=== PATIENT | female | born 1990 | race Caucasian/White ===

== ENCOUNTER 2016-10-08 16:33 | Emergency (ER) | payer SELFPAY ==
[~2016-10-08] VITALS: Ht 170.2 cm; Wt 72.7 kg
[~2016-10-08 16:33] MED LIST: ACETAMINOPHEN W1 TA6 PO; AMOXICILLIN 8751 TAB PO; BUSPAR5 MG; CELEXA10 MG; CEPHALEXIN500 M1 PO; CIPRO 500MG TA500 MG PO; IBU600 MG PO; LORTAB 5/500 501 TAB PO; NAPROSYN PO; NO HOME MEDICATIONS; NORCO 325 MG-51 TAB PO; PERCOCET 325 MG1 TA2 PO; PHENERGAN 25 TA25 MG PO; PRENATAL1 TA7 PO; PROVENTIL0.09 MG/A1 IH; TUSS PO
[2016-10-08 16:34] VITALS: BP 151/88; PULSE 99; TEMP 98.7
[2016-10-08] MEDS ORDERED: SPRINTEC 35 MCG1 TAB PO (16:39)
[2016-10-08] MEDS ORDERED: XANAX2 MG PO (16:39)
[2016-10-08] MEDS ORDERED: ADDERALL10 MG PO (16:39)
[2016-10-08 17:11] LABS: BASO # 0.1 (0.0-0.2); BASO % 0.9 % (0.0-2.0); EOS # 0.2 (0.0-0.7); EOS % 2.2 % (0-4.0); GRAN # 6.4 (1.4-6.5); GRAN % 62.2 % (42.2-75.2); HEMATOCRIT 38.7 % (37.0-47.0); HEMOGLOBIN 12.9 g/dl (12.5-16.0); LYMPH % 29.4 % (20.0-51.0); MEAN CELL VOLUME 95 fl (80.0-100.0); MEAN CORPUSCULAR HEMOGLOBIN 32 pg (27.0-31.0); MEAN CORPUSCULAR HGB CONC 33 g/dl (33.0-37.0); MEAN PLATELET VOLUME 10.8 fl (7.4-10.4); MONO # 0.5 (0.1-0.6); MONO % 5.1 % (1.7-9.3); PLATELET COUNT 231 K/mm3 (130-400); RED BLOOD COUNT 4.07 M/mm3 (4.10-5.30); REDCELL DISTRIBUTION WIDTH-CV 13.1 % (11.5-14.5); WHITE BLOOD COUNT 10.3 K/mm3 (4.8-10.8)
[2016-10-08 17:24] LABS: PH 7 (5-8); URINE APPEARANCE Clear; URINE BACTERIA Rare /hpf; URINE BILIRUBIN Negative (NEGATIVE); URINE BLOOD 1+ (NEGATIVE); URINE COLOR Yellow; URINE GLUCOSE Negative (NEGATIVE); URINE KETONE Negative (NEGATIVE); URINE UROBILINOGEN Negative (NEGATIVE)
[2016-10-08] MEDS ORDERED: AMOXICILLIN 50500 MG PO (17:27)
== END 2016-10-08 17:32 | disposition home or self-care (01) ==
LOC: COL.ER 16:33
PROVIDERS: Physician Assistant
DX: K08.89 Other specified disorders of teeth and supporting structures (principal); R23.3 Spontaneous ecchymoses; F90.9 Attention-deficit hyperactivity disorder, unspecified type; F41.9 Anxiety disorder, unspecified; F32.9 Major depressive disorder, single episode, unspecified

== ENCOUNTER 2016-11-09 15:32 | Emergency (ER) | payer SELFPAY ==
[~2016-11-09] VITALS: Ht 170.2 cm; Wt 67.0 kg
[~2016-11-09 15:32] MED LIST changes: +ADDERALL10 MG PO; +AMOXICILLIN 50500 MG PO; +SPRINTEC 35 MCG1 TAB PO; +XANAX2 MG PO
[2016-11-09 15:41] VITALS: BP 147/84; TEMP 98.1
[2016-11-09 18:30] VITALS: PULSE 51
== END 2016-11-09 18:35 | disposition home or self-care (01) ==
LOC: COL.ER 15:32
DX: S16.1XXA Strain of muscle, fascia and tendon at neck level, initial encounter (principal); S50.11XA Contusion of right forearm, initial encounter; W10.8XXA Fall (on) (from) other stairs and steps, initial encounter; Y92.008 Other place in unspecified non-institutional (private) residence as the place of occurrence of the external cause; F32.9 Major depressive disorder, single episode, unspecified; F41.9 Anxiety disorder, unspecified; F90.9 Attention-deficit hyperactivity disorder, unspecified type; R40.2412 Glasgow coma scale score 13-15, at arrival to emergency department

== ENCOUNTER 2017-04-09 17:17 | Emergency (ER) | payer SELFPAY ==
[~2017-04-09] VITALS: Ht 167.6 cm; Wt 68.2 kg
[2017-04-09 17:35] VITALS: BP 180/90; PULSE 97; TEMP 98.6
[2017-04-09] MEDS ORDERED: XANAX 1MG1 MG PO (18:30)
== END 2017-04-09 18:40 | disposition home or self-care (01) ==
LOC: COL.ER 17:17
DX: F19.239 Other psychoactive substance dependence with withdrawal, unspecified (principal); F41.9 Anxiety disorder, unspecified; F17.210 Nicotine dependence, cigarettes, uncomplicated

== ENCOUNTER 2017-07-06 21:55 | Emergency (ER) | payer SELFPAY ==
[~2017-07-06 21:55] MED LIST changes: +XANAX 1MG1 MG PO
[2017-07-06 21:57] VITALS: BP 165/89; TEMP 99.7
[2017-07-06 22:28] LABS: BASO # 0.1 (0.0-0.2); BASO % 0.8 % (0.0-2.0); EOS # 0.3 (0.0-0.7); EOS % 2.1 % (0-4.0); GRAN # 8.5 (1.4-6.5); GRAN % 62.1 % (42.2-75.2); HEMATOCRIT 40.8 % (37.0-47.0); HEMOGLOBIN 14.2 g/dl (12.5-16.0); MEAN CELL VOLUME 91 fl (80.0-100.0); MEAN CORPUSCULAR HEMOGLOBIN 32 pg (27.0-31.0); MEAN CORPUSCULAR HGB CONC 35 g/dl (33.0-37.0); MEAN PLATELET VOLUME 10.8 fl (7.4-10.4); MONO # 0.8 (0.1-0.6); MONO % 5.7 % (1.7-9.3); PLATELET COUNT 235 K/mm3 (130-400); RED BLOOD COUNT 4.48 M/mm3 (4.10-5.30); REDCELL DISTRIBUTION WIDTH-CV 12.5 % (11.5-14.5)
[2017-07-06 22:45] LABS: ALANINE AMINOTRANSFERASE 26 U/L (9-52); ALBUMIN 4.4 gm/dL (3.5-5.0); ALKALINE PHOSPHATASE 71 U/L (50-136); ANION GAP 14 mmol/L (7-16); AST,SGOT 20 U/L (15-37); BILIRUBIN,TOTAL 0.4 mg/dL (0.0-1.0); BLOOD UREA NITROGEN 18 mg/dL (7-17); CALCIUM 9.8 mg/dL (8.4-10.2); CARBON DIOXIDE 26 mmol/L (22-30); CHLORIDE 106 mmol/L (98-107); CREATININE, serum 0.88 mg/dL (0.52-1.25); GLUCOSE 102 mg/dL (74-106); POTASSIUM 3.6 mmol/L (3.4-5.0); SODIUM 146 mmol/L (137-145); TOTAL PROTEIN 8.5 gm/dL (6.4-8.2)
[2017-07-06 22:47] LABS: ACETAMINOPHEN < 10 ug/mL (10-30); ALCOHOL(ethanol),MEDICAL < 10 mg/dL; SALICYLATE < 1.0 mg/dL
[2017-07-06 23:31] LABS: COLLECTION METHOD CLEAN CATCH
[2017-07-06 23:39] LABS: MUCOUS Present /lpf; PH 5 (5-8); SQUAMOUS EPITHELIAL 0-2 /hpf; URINE APPEARANCE Cloudy; URINE BACTERIA Many /hpf; URINE BILIRUBIN Negative (NEGATIVE); URINE BLOOD 2+ (NEGATIVE); URINE COLOR Amber; URINE GLUCOSE Negative (NEGATIVE); URINE KETONE 1+ (NEGATIVE); URINE LEUKOCYTE ESTERASE Trace (NEGATIVE); URINE NITRATE Positive (NEGATIVE); URINE PROTEIN(semi-quant) 2+ (NEGATIVE)
[2017-07-06 23:49] LABS: TRICYCLIC ANTIDEPRESS URINE NEGATIVE
[2017-07-07 01:51] VITALS: PULSE 91
[2017-07-08] MEDS ORDERED: CEPHALEXIN500 M1 PO (19:26)
== END 2017-07-07 01:57 | disposition home or self-care (01) ==
LOC: COL.ER 21:55
PROVIDERS: Nurse Practitioner
DX: F41.9 Anxiety disorder, unspecified (principal); R44.0 Auditory hallucinations; F17.210 Nicotine dependence, cigarettes, uncomplicated

== ENCOUNTER 2017-09-17 10:12 | Day surgery (SDC) | payer SELFPAY ==
[~2017-09-17] VITALS: Ht 167.6 cm; Wt 67.6 kg
[2017-09-17] VITALS (9 sets, daily range): BP systolic 16–115; BP diastolic 58–65; PULSE 52–68; TEMP 97.6–98.4
[2017-09-17] MEDS ORDERED: INDERAL 20MG20 MG PO (10:20)
[2017-09-17] MEDS ORDERED: ADDERALL30 MG PO (10:21)
[2017-09-17 11:05] LABS: COLLECTION METHOD CATHETER
[2017-09-17 11:11] LABS: PH 6 (5-8); SQUAMOUS EPITHELIAL 0-2 /hpf; URINE APPEARANCE Clear; URINE BACTERIA None Seen /hpf; URINE BILIRUBIN Negative (NEGATIVE); URINE BLOOD 1+ (NEGATIVE); URINE COLOR Straw; URINE GLUCOSE Negative (NEGATIVE); URINE KETONE Negative (NEGATIVE); URINE LEUKOCYTE ESTERASE Negative (NEGATIVE); URINE NITRATE Negative (NEGATIVE); URINE PROTEIN(semi-quant) Negative (NEGATIVE); URINE RBC 0-2 /hpf; URINE UROBILINOGEN Negative (NEGATIVE)
[2017-09-17 11:34] LABS: BASO # 0.1 (0.0-0.2); BASO % 0.8 % (0.0-2.0); EOS # 0.3 (0.0-0.7); EOS % 2.3 % (0-4.0); GRAN # 8.4 (1.4-6.5); GRAN % 69.7 % (42.2-75.2); HEMOGLOBIN 11.9 g/dl (12.5-16.0); LYMPH # 2.6 (1.2-3.4); LYMPH % 21.8 % (20.0-51.0); MEAN CELL VOLUME 98 fl (80.0-100.0); MEAN CORPUSCULAR HEMOGLOBIN 33 pg (27.0-31.0); MEAN CORPUSCULAR HGB CONC 34 g/dl (33.0-37.0); MEAN PLATELET VOLUME 10.6 fl (7.4-10.4); MONO # 0.6 (0.1-0.6); MONO % 5.1 % (1.7-9.3); PLATELET COUNT 234 K/mm3 (130-400); RED BLOOD COUNT 3.57 M/mm3 (4.10-5.30); REDCELL DISTRIBUTION WIDTH-CV 13.3 % (11.5-14.5)
[2017-09-17 11:37] LABS: HEMATOCRIT 35.1 % (37.0-47.0)
[2017-09-17 11:40] LABS: ALBUMIN 4.1 gm/dL (3.5-5.0); BILIRUBIN,TOTAL 0.3 mg/dL (0.0-1.0); C-REACTIVE PROTEIN 0.7 mg/dL (0.0-0.9); CALCIUM 9.1 mg/dL (8.4-10.2); CREATININE, serum 0.55 mg/dL (0.52-1.25); TOTAL PROTEIN 7.3 gm/dL (6.4-8.2)
[2017-09-17] MEDS ORDERED: PERCOCET 325 MG1 TA2 PO (15:18)
[2017-09-17] MEDS ORDERED: MOTRIN 800800 MG/TAB PO ×2 (15:18→15:24)
== END 2017-09-17 19:05 | disposition home or self-care (01) ==
LOC: COL.ER 10:12 → SDCO 13:56 → COL.ER 14:30 → OB 17:30 → SDCO 19:05
PROVIDERS: Physician Assistant
DX: O00.101 Right tubal pregnancy without intrauterine pregnancy (principal); F32.9 Major depressive disorder, single episode, unspecified; G43.909 Migraine, unspecified, not intractable, without status migrainosus; F90.9 Attention-deficit hyperactivity disorder, unspecified type; Z83.3 Family history of diabetes mellitus; Z82.49 Family history of ischemic heart disease and other diseases of the circulatory system; F41.9 Anxiety disorder, unspecified; F17.210 Nicotine dependence, cigarettes, uncomplicated
CPT/HCPCS: OP; J1170; J1885; J2405; J2704; J3010; J7030; J7120

== ENCOUNTER 2017-10-08 12:15 | Emergency (ER) | payer SELFPAY ==
[~2017-10-08] VITALS: Ht 170.2 cm; Wt 68.2 kg
[~2017-10-08 12:15] MED LIST changes: +ADDERALL30 MG PO; +INDERAL 20MG20 MG PO; +MOTRIN 800800 MG/TAB PO
[2017-10-08 12:56] VITALS: BP 142/93; TEMP 99.8
[2017-10-08] MEDS ORDERED: ATIVAN 0.50.5 MG/TAB PO (13:01)
[2017-10-08] MEDS ORDERED: MIRTAZAPINE7.5 MG PO (13:02)
[2017-10-08 14:04] VITALS: PULSE 108
== END 2017-10-08 14:24 | disposition home or self-care (01) ==
LOC: COL.ER 12:15
DX: F41.9 Anxiety disorder, unspecified (principal); F32.9 Major depressive disorder, single episode, unspecified; F90.9 Attention-deficit hyperactivity disorder, unspecified type; F12.90 Cannabis use, unspecified, uncomplicated; F17.210 Nicotine dependence, cigarettes, uncomplicated; Z86.69 Personal history of other diseases of the nervous system and sense organs; Z90.79 Acquired absence of other genital organ(s); Z98.890 Other specified postprocedural states

== ENCOUNTER 2017-10-09 06:08 | Emergency (ER) | payer SELFPAY ==
[~2017-10-09] VITALS: Ht 170.2 cm; Wt 68.2 kg
[~2017-10-09 06:08] MED LIST changes: +ATIVAN 0.50.5 MG/TAB PO; +MIRTAZAPINE7.5 MG PO
[2017-10-09 06:12] VITALS: TEMP 99.1
[2017-10-09 06:56] LABS: COLLECTION METHOD CLEAN CATCH
[2017-10-09 07:04] LABS: MUCOUS Present /lpf; PH 6 (5-8); URINE APPEARANCE Hazy; URINE BACTERIA None Seen /hpf; URINE BILIRUBIN Negative (NEGATIVE); URINE BLOOD 1+ (NEGATIVE); URINE COLOR Amber; URINE GLUCOSE Negative (NEGATIVE); URINE KETONE 1+ (NEGATIVE); URINE LEUKOCYTE ESTERASE Negative (NEGATIVE); URINE NITRATE Negative (NEGATIVE); URINE PROTEIN(semi-quant) 2+ (NEGATIVE); URINE RBC 20-50 /hpf
[2017-10-09 07:15] LABS: TRICYCLIC ANTIDEPRESS URINE NEGATIVE
[2017-10-09 07:19] LABS: BASO # 0.1 (0.0-0.2); BASO % 1.3 % (0.0-2.0); EOS # 0.2 (0.0-0.7); EOS % 1.8 % (0-4.0); GRAN % 58.3 % (42.2-75.2); HEMATOCRIT 37.3 % (37.0-47.0); LYMPH # 3.1 (1.2-3.4); LYMPH % 30.6 % (20.0-51.0); MEAN CELL VOLUME 91 fl (80.0-100.0); MEAN CORPUSCULAR HEMOGLOBIN 32 pg (27.0-31.0); MEAN CORPUSCULAR HGB CONC 35 g/dl (33.0-37.0); MEAN PLATELET VOLUME 11.3 fl (7.4-10.4); MONO # 0.8 (0.1-0.6); MONO % 7.9 % (1.7-9.3); PLATELET COUNT 190 K/mm3 (130-400); RED BLOOD COUNT 4.08 M/mm3 (4.10-5.30); REDCELL DISTRIBUTION WIDTH-CV 12.7 % (11.5-14.5)
[2017-10-09 07:29] LABS: ALANINE AMINOTRANSFERASE 26 U/L (9-52); ALBUMIN 4.6 gm/dL (3.5-5.0); ALKALINE PHOSPHATASE 59 U/L (50-136); ANION GAP 12 mmol/L (7-16); AST,SGOT 21 U/L (15-37); BILIRUBIN,TOTAL 0.6 mg/dL (0.0-1.0); BLOOD UREA NITROGEN 18 mg/dL (7-17); CALCIUM 9.3 mg/dL (8.4-10.2); CARBON DIOXIDE 27 mmol/L (22-30); CHLORIDE 104 mmol/L (98-107); CREATININE, serum 0.69 mg/dL (0.52-1.25); GLUCOSE 84 mg/dL (74-106); POTASSIUM 3.1 mmol/L (3.4-5.0); SODIUM 143 mmol/L (137-145); TOTAL PROTEIN 8.1 gm/dL (6.4-8.2)
[2017-10-09 07:30] LABS: ACETAMINOPHEN < 10 ug/mL (10-30); ALCOHOL(ethanol),MEDICAL < 10 mg/dL; SALICYLATE < 1.0 mg/dL
[2017-10-10 11:04] LABS: TRICYCLIC ANTIDEPRESS URINE NEGATIVE
[2017-10-10 14:01] LABS: CALCIUM 8.7 mg/dL (8.4-10.2); CREATININE, serum 0.61 mg/dL (0.52-1.25); POTASSIUM 3.9 mmol/L (3.4-5.0)
[2017-10-10 19:05] VITALS: BP 120/70; PULSE 85
== END 2017-10-10 19:05 | disposition home or self-care (01) ==
LOC: COL.ER 06:08
PROVIDERS: Emergency Medicine
DX: R44.3 Hallucinations, unspecified (principal); F41.9 Anxiety disorder, unspecified; F17.210 Nicotine dependence, cigarettes, uncomplicated; F15.11 Other stimulant abuse, in remission; E87.6 Hypokalemia; F32.9 Major depressive disorder, single episode, unspecified

== ENCOUNTER 2018-01-14 18:11 | Emergency (ER) | payer SELFPAY ==
[~2018-01-14] VITALS: Ht 152.4 cm; Wt 68.2 kg
[2018-01-14 18:19] VITALS: BP 142/76; TEMP 98.2
[2018-01-14] MEDS ORDERED: AMOXICILLIN 8751 TAB PO (18:32)
[2018-01-14 18:50] VITALS: PULSE 96
== END 2018-01-14 18:51 | disposition home or self-care (01) ==
LOC: COL.ER 18:11
DX: J32.0 Chronic maxillary sinusitis (principal)

== ENCOUNTER 2018-02-20 11:59 | Emergency (ER) | payer SELFPAY ==
[~2018-02-20] VITALS: Ht 167.6 cm; Wt 65.0 kg
[2018-02-20 12:02] VITALS: TEMP 97.3
[2018-02-20] MEDS ORDERED: SEROQUEL 2525 MG/TAB PO (12:05)
[2018-02-20] MEDS ORDERED: ADDERALL20 MG PO (12:12)
[2018-02-20] MEDS ORDERED: NORCO 325 MG-51 TAB PO (13:32)
[2018-02-20] MEDS ORDERED: FLEXERIL 1010 MG/TAB PO (13:32)
[2018-02-20 13:37] VITALS: BP 142/86; PULSE 75
== END 2018-02-20 13:38 | disposition home or self-care (01) ==
LOC: COL.ER 11:59
DX: M54.12 Radiculopathy, cervical region (principal); M25.522 Pain in left elbow; F17.210 Nicotine dependence, cigarettes, uncomplicated; F12.90 Cannabis use, unspecified, uncomplicated; F90.9 Attention-deficit hyperactivity disorder, unspecified type; G43.909 Migraine, unspecified, not intractable, without status migrainosus; F41.9 Anxiety disorder, unspecified; F32.9 Major depressive disorder, single episode, unspecified
CPT/HCPCS: J1885

== ENCOUNTER 2018-03-24 20:30 | Emergency (ER) | payer SELFPAY ==
[~2018-03-24] VITALS: Ht 167.6 cm; Wt 65.9 kg
[~2018-03-24 20:30] MED LIST changes: +ADDERALL20 MG PO; +FLEXERIL 1010 MG/TAB PO; -MIRTAZAPINE7.5 MG PO; +REMERON30 MG PO; +SEROQUEL 2525 MG/TAB PO
[2018-03-24 20:57] VITALS: BP 134/79; TEMP 98.7
[2018-03-25 00:55] VITALS: PULSE 90
== END 2018-03-25 01:11 | disposition home or self-care (01) ==
LOC: COL.ER 20:30
DX: J10.1 Influenza due to other identified influenza virus with other respiratory manifestations (principal); F17.210 Nicotine dependence, cigarettes, uncomplicated; F12.90 Cannabis use, unspecified, uncomplicated; G43.909 Migraine, unspecified, not intractable, without status migrainosus; F32.9 Major depressive disorder, single episode, unspecified; F41.9 Anxiety disorder, unspecified; F90.9 Attention-deficit hyperactivity disorder, unspecified type

== ENCOUNTER 2018-08-24 20:34 | Emergency (ER) | payer SELFPAY ==
[~2018-08-24] VITALS: Ht 167.6 cm; Wt 65.9 kg
[2018-08-24 20:39] VITALS: BP 134/82; TEMP 98.5
[2018-08-24] MEDS ORDERED: SUDAFED30 MG PO (21:23)
[2018-08-24] MEDS ORDERED: CLARITIN 1010 MG/TAB PO (21:23)
[2018-08-24] MEDS ORDERED: PATADAY 2.5 ML2.5 ML OU (21:23)
[2018-08-24 22:09] VITALS: PULSE 97
== END 2018-08-24 22:09 | disposition home or self-care (01) ==
LOC: COL.ER 20:34
DX: J30.9 Allergic rhinitis, unspecified (principal); F90.9 Attention-deficit hyperactivity disorder, unspecified type; F17.210 Nicotine dependence, cigarettes, uncomplicated; F12.90 Cannabis use, unspecified, uncomplicated

== ENCOUNTER 2018-11-28 15:55 | Emergency (ER) | payer SELFPAY ==
[~2018-11-28] VITALS: Ht 167.6 cm; Wt 68.2 kg
[~2018-11-28 15:55] MED LIST changes: +CLARITIN 1010 MG/TAB PO; +PATADAY 2.5 ML2.5 ML OU; +SUDAFED30 MG PO
[2018-11-28 16:06] VITALS: BP 125/76
[2018-11-28] MEDS ORDERED: NORCO 325 MG-51 TAB PO (16:27)
[2018-11-28] MEDS ORDERED: AMOXICILLIN 50500 MG PO (16:27)
[2018-11-28 16:40] VITALS: PULSE 82; TEMP 98
== END 2018-11-28 16:45 | disposition home or self-care (01) ==
LOC: COL.ER 15:55
DX: K04.7 Periapical abscess without sinus (principal); F17.210 Nicotine dependence, cigarettes, uncomplicated

== ENCOUNTER 2019-02-26 14:47 | Emergency (ER) | payer SELFPAY ==
[~2019-02-26] VITALS: Ht 167.6 cm; Wt 70.5 kg
[2019-02-26 14:56] VITALS: BP 137/75; TEMP 98
[2019-02-26 16:53] VITALS: PULSE 84
== END 2019-02-26 17:03 | disposition home or self-care (01) ==
LOC: COL.ER 14:47
DX: J11.1 Influenza due to unidentified influenza virus with other respiratory manifestations (principal); F17.210 Nicotine dependence, cigarettes, uncomplicated

== ENCOUNTER 2019-07-27 14:36 | Emergency (ER) | payer SELFPAY ==
[~2019-07-27] VITALS: Ht 167.6 cm; Wt 79.5 kg
[2019-07-27 14:39] VITALS: TEMP 98.3
[2019-07-27 15:12] LABS: COLLECTION METHOD CLEAN CATCH
[2019-07-27 15:16] LABS: BASO # 0.1 (0.0-0.2); BASO % 0.9 % (0.0-2.0); EOS # 0.2 (0.0-0.7); EOS % 2.3 % (0-4.0); GRAN # 6.2 (1.4-6.5); GRAN % 63.6 % (42.2-75.2); HEMATOCRIT 43.5 % (37.0-47.0); HEMOGLOBIN 14.4 g/dl (12.5-16.0); LYMPH # 2.7 (1.2-3.4); LYMPH % 27.7 % (20.0-51.0); MEAN CELL VOLUME 98 fl (80.0-100.0); MEAN CORPUSCULAR HEMOGLOBIN 32 pg (27.0-31.0); MEAN CORPUSCULAR HGB CONC 33 g/dl (33.0-37.0); MEAN PLATELET VOLUME 10.6 fl (7.4-10.4); MONO # 0.5 (0.1-0.6); MONO % 5.4 % (1.7-9.3); PLATELET COUNT 220 K/mm3 (130-400); RED BLOOD COUNT 4.46 M/mm3 (4.10-5.30); REDCELL DISTRIBUTION WIDTH-CV 12.1 % (11.5-14.5)
[2019-07-27 15:22] LABS: MUCOUS Present /lpf; PH 7 (5-8); SQUAMOUS EPITHELIAL 0-2 /hpf; URINE APPEARANCE Clear; URINE BACTERIA None Seen /hpf; URINE BILIRUBIN Negative (NEGATIVE); URINE BLOOD 2+ (NEGATIVE); URINE COLOR Yellow; URINE GLUCOSE Negative (NEGATIVE); URINE KETONE Negative (NEGATIVE); URINE LEUKOCYTE ESTERASE Negative (NEGATIVE); URINE NITRATE Negative (NEGATIVE); URINE PROTEIN(semi-quant) Negative (NEGATIVE); URINE UROBILINOGEN Negative (NEGATIVE)
[2019-07-27 15:30] LABS: ALANINE AMINOTRANSFERASE 22 U/L (4-34); ALBUMIN 4.3 gm/dL (3.5-5.0); ALKALINE PHOSPHATASE 70 U/L (50-136); ANION GAP 8 mmol/L (7-16); AST,SGOT 28 U/L (15-37); BILIRUBIN,TOTAL 0.7 mg/dL (0.0-1.0); BLOOD UREA NITROGEN 9 mg/dL (7-17); CALCIUM 9.2 mg/dL (8.4-10.2); CARBON DIOXIDE 25 mmol/L (22-30); CHLORIDE 103 mmol/L (98-107); CREATININE, serum 0.52 (0.52-1.25); GLUCOSE 116 mg/dL (74-106); LIPASE 28 U/L (23-300); POTASSIUM 3.7 mmol/L (3.4-5.0); SODIUM 136 mmol/L (137-145); TOTAL PROTEIN 7.9 gm/dL (6.4-8.2)
[2019-07-27 15:35] LABS: C-REACTIVE PROTEIN < 0.5 mg/dL (0.0-0.9)
[2019-07-27 16:16] VITALS: BP 140/85; PULSE 85
== END 2019-07-27 16:30 | disposition home or self-care (01) ==
LOC: COL.ER 14:36
PROVIDERS: Emergency Medicine
DX: R10.11 Right upper quadrant pain (principal); R10.31 Right lower quadrant pain; F17.210 Nicotine dependence, cigarettes, uncomplicated
CPT/HCPCS: J2405; J3010; J7030; Q9967

== ENCOUNTER 2019-10-18 16:57 | Emergency (ER) | payer SELFPAY ==
[~2019-10-18] VITALS: Ht 167.6 cm; Wt 84.1 kg
[2019-10-18 17:11] VITALS: TEMP 98.1
[2019-10-18] MEDS ORDERED: BACTRIM DS 8001 TAB PO (17:40)
[2019-10-18] MEDS ORDERED: NORCO 325 MG-51 TAB PO (18:00)
[2019-10-18 18:27] VITALS: BP 109/74; PULSE 89
== END 2019-10-18 18:27 | disposition home or self-care (01) ==
LOC: COL.ER 16:57
DX: L02.214 Cutaneous abscess of groin (principal); J45.909 Unspecified asthma, uncomplicated; G43.909 Migraine, unspecified, not intractable, without status migrainosus; F31.9 Bipolar disorder, unspecified; F90.9 Attention-deficit hyperactivity disorder, unspecified type; F17.210 Nicotine dependence, cigarettes, uncomplicated

== ENCOUNTER → 2020-09-21 | Emergency (ER) | payer SELFPAY ==
[~2020-09-21] VITALS: Ht 167.6 cm; Wt 90.9 kg
[~2020-09-21] MED LIST changes: +BACTRIM DS 8001 TAB PO; +CLEOCIN HCL300 MG PO; +DOXYCYCLINE 10100 MG PO; +ZOFRAN ODT4 MG PO
[2020-09-21 18:33] VITALS: BP 123/90; PULSE 89; TEMP 98
== END ==
LOC: COL.ER 18:14
DX: K04.7 Periapical abscess without sinus (principal); F17.210 Nicotine dependence, cigarettes, uncomplicated

== ENCOUNTER 2020-10-01 11:59 | Emergency (ER) | payer SELFPAY ==
[~2020-10-01] VITALS: Ht 167.6 cm; Wt 90.9 kg
[~2020-10-01 11:59] MED LIST changes: -DOXYCYCLINE 10100 MG PO; -ZOFRAN ODT4 MG PO
[2020-10-01 12:37] VITALS: BP 148/91; TEMP 98.6
[2020-10-01 13:08] LABS: BASO # 0.1 (0.0-0.2); BASO % 0.9 % (0.0-2.0); EOS # 0.2 (0.0-0.7); EOS % 2.5 % (0-4.0); GRAN # 6.2 (1.4-6.5); GRAN % 62.9 % (42.2-75.2); HEMATOCRIT 40.7 % (37.0-47.0); HEMOGLOBIN 13.4 g/dl (12.5-16.0); LYMPH # 2.5 (1.2-3.4); LYMPH % 25.9 % (20.0-51.0); MEAN CELL VOLUME 96 fl (80.0-100.0); MEAN CORPUSCULAR HEMOGLOBIN 32 pg (27.0-31.0); MEAN CORPUSCULAR HGB CONC 33 g/dl (33.0-37.0); MEAN PLATELET VOLUME 10.3 fl (7.4-10.4); MONO # 0.7 (0.1-0.6); MONO % 7.6 % (1.7-9.3); PLATELET COUNT 235 K/mm3 (130-400); RED BLOOD COUNT 4.25 M/mm3 (4.10-5.30); REDCELL DISTRIBUTION WIDTH-CV 12.7 % (11.5-14.5)
[2020-10-01 13:22] LABS: ALBUMIN 3.9 gm/dL (3.5-5.0); BILIRUBIN,TOTAL 0.2 mg/dL (0.0-1.0); C-REACTIVE PROTEIN 1.4 mg/dL (0.0-0.9); CALCIUM 8.9 mg/dL (8.4-10.2); CREATININE, serum 0.56 (0.52-1.25); POTASSIUM 4.1 mmol/L (3.4-5.0); TOTAL PROTEIN 7.1 gm/dL (6.4-8.2)
[2020-10-01] MEDS ORDERED: ZOFRAN ODT4 MG PO (14:15)
[2020-10-01] MEDS ORDERED: DOXYCYCLINE 10100 MG PO (14:15)
[2020-10-01 14:33] VITALS: PULSE 88
== END 2020-10-01 14:33 | disposition home or self-care (01) ==
LOC: COL.ER 11:59
PROVIDERS: Nurse Practitioner
DX: L03.211 Cellulitis of face (principal); F17.210 Nicotine dependence, cigarettes, uncomplicated

== ENCOUNTER 2021-06-10 18:05 | Emergency (ER) | payer SELFPAY ==
[~2021-06-10] VITALS: Ht 167.6 cm; Wt 97.7 kg
[~2021-06-10 18:05] MED LIST changes: +DOXYCYCLINE 10100 MG PO; +ZOFRAN ODT4 MG PO
[2021-06-10] MEDS ORDERED: DOXYCYCLINE 10100 MG PO (18:58)
[2021-06-10 19:25] VITALS: BP 167/106; PULSE 92; TEMP 97.2
== END 2021-06-10 19:24 | disposition home or self-care (01) ==
LOC: COL.ER 18:05
DX: L02.416 Cutaneous abscess of left lower limb (principal); F17.210 Nicotine dependence, cigarettes, uncomplicated

== ENCOUNTER 2021-11-27 18:05 | Emergency (ER) | payer SELFPAY ==
[~2021-11-27] VITALS: Ht 167.6 cm; Wt 97.7 kg
[2021-11-27 18:13] VITALS: TEMP 98.3
[2021-11-27] MEDS ORDERED: NORCO 325 MG-51 TAB PO ×3 (20:04→20:23)
[2021-11-27] MEDS ORDERED: AMOXICILLIN 8751 TAB PO ×3 (20:04→20:23)
[2021-11-27 20:52] VITALS: BP 145/102; PULSE 73
== END 2021-11-27 20:52 | disposition home or self-care (01) ==
LOC: COL.ER 18:05
DX: S61.431A Puncture wound without foreign body of right hand, initial encounter (principal); S51.031A Puncture wound without foreign body of right elbow, initial encounter; S60.211A Contusion of right wrist, initial encounter; F17.200 Nicotine dependence, unspecified, uncomplicated; Z28.310 Unvaccinated for COVID-19; W54.0XXA Bitten by dog, initial encounter
CPT/HCPCS: J1885